=== PATIENT | male | born 1990 ===

== ENCOUNTER 2022-04-12 18:05 | Emergency (ER) | payer OTHER ==
[~2022-04-12] VITALS: Ht 180.3 cm; Wt 97.7 kg
[2022-04-12 18:14] VITALS: BP 154/97
== END 2022-04-12 18:47 | disposition left against medical advice (07) ==
LOC: EMS 18:07
DX: Z53.21 Procedure and treatment not carried out due to patient leaving prior to being seen by health care provider (principal)